=== PATIENT | male | born 1970 | race African-American/Black ===

== ENCOUNTER 2025-10-05 00:03 | Inpatient (IN) | payer OTHER ==
[~2025-10-05] VITALS: Ht 182.9 cm; Wt 64.9 kg
[~2025-10-05 00:03] MED LIST: LEVO-65 MT
[2025-10-05 00:13] VITALS: O2SAT 96
[2025-10-05] MEDS: SODIUM CHLORIDE 0.9% 1,000 ML IV ONE (01:45)
[2025-10-05] MEDS: LEVETIRACETAM 1000MG PREMIX 100 ML IV ONE (01:46)
[2025-10-05 01:53] LABS: BASOPHILS % 1.4 % (0.0-2.0); EOSINOPHILS % 0.5 % (0.0-5.0); HEMATOCRIT. 39.8 % (42.0-52.0); HEMOGLOBIN. 13.2 g/dL (14.0-18.0); LYMPHOCYTES % 13.2 % (20.0-50.0); MEAN PLATELET VOLUME 8.7 fl (7.4-10.4); MONOCYTES % 6.9 % (2.0-8.0); NEUTROPHILS % 78.0 % (40.0-76.0); PLATELET 255 x1000/uL (130-400); RED BLOOD CELL COUNT 3.90 mill/uL (4.7-6.1); RED CELL DISTRIBUTION WIDTH 13.7 % (11.6-14.6)
[2025-10-05 02:07] LABS: ETHANOL BLOOD 172 mg/dL (<10); UREA NITROGEN BLOOD 13 mg/dL (9-23)
[2025-10-05 02:08] LABS: ASPARTATE AMINOTRANSFERASE 31 IU/L (<34)
[2025-10-05 02:09] LABS: BILIRUBIN DIRECT 0.1 mg/dL (<=3.0); BILIRUBIN TOTAL 0.4 mg/dL (0.1-1.0); PROTEIN TOTAL 7.4 g/dL (6.0-8.3)
[2025-10-05 02:10] LABS: CREATININE 1.3 mg/dL (0.6-1.3)
[2025-10-05] MEDS: MIDODRINE HCL 5MG TABLET PO SCH (06:26)
[2025-10-05 06:54] VITALS: BP 90/66; PULSE 69; RESP 14; TEMP 36.696
[2025-10-05 08:00] VITALS: BP 88/51; PULSE 59; RESP 18; TEMP 35.9; O2SAT 100
[2025-10-05] MEDS: LEVETIRACETAM 500MG TABLET PO SCH (08:53)
[2025-10-05] MEDS ORDERED: LORAZEPAM 1MG TABLET PO PRN (09:45)
[2025-10-05] MEDS: ENOXAPARIN 40MG/0.4ML SYR SUBCUT SCH (11:46)
[2025-10-05 12:00] VITALS: BP 82/44; PULSE 60; RESP 18; TEMP 36.1; O2SAT 99
[2025-10-05] MEDS: CHLORDIAZEPOXIDE 25MG CAPSULE PO SCH (13:43)
[2025-10-05] MEDS: KETOROLAC 15MG/ML VIAL IV PRN (13:52)
[2025-10-05 16:00] VITALS: BP 83/44; PULSE 64; PULSE 94; RESP 18; TEMP 35.9; O2SAT 99
[2025-10-05 20:00] VITALS: BP 86/47; PULSE 52; RESP 19; TEMP 36.2; O2SAT 100
[2025-10-05] MEDS: SODIUM CHLORIDE 0.9% 1,000 ML IV SCH (21:08)
[2025-10-06] VITALS (7 sets, daily range): BP systolic 90–108; BP diastolic 50–64; PULSE 53–63; RESP 15–18; TEMP 36.2–36.7; O2SAT 98–100
[2025-10-07 04:20] VITALS: BP 103/55; PULSE 52; RESP 17; TEMP 36.2; O2SAT 99
[2025-10-07 08:00] VITALS: BP 101/47; PULSE 52; RESP 18; TEMP 36.7; O2SAT 100
[2025-10-07] MEDS ORDERED: LEVE1000 MT (09:34)
[2025-10-07] MEDS ORDERED: MIDO10TA3 MT (09:35)
[2025-10-07 12:00] VITALS: BP_SYST 101; BP_SYST 86; BP_DIAS 47; BP_DIAS 55; PULSE 52; RESP 15; TEMP 36.7; O2SAT 100
[2025-10-07 16:00] VITALS: BP 90/45; PULSE 66; RESP 16; TEMP 36.6; O2SAT 100
[2025-10-07 16:20] VITALS: BP 90/45; PULSE 66; RESP 16; TEMP 97.9
== END 2025-10-07 18:00 | disposition home or self-care (01) | DRG 53 ==
LOC: ER 00:03 → 6WST 03:00 → EDBEDREQTM 03:04 → EDBEDREQ 03:04 → ENRESERV 03:38
PROVIDERS: ADMIT Internal Medicine; ATTEND Internal Medicine
DX: G40.909 Epilepsy, unspecified, not intractable, without status epilepticus (principal); F10.929 Alcohol use, unspecified with intoxication, unspecified; Y90.6 Blood alcohol level of 120-199 mg/100 ml; T42.6X6A Underdosing of other antiepileptic and sedative-hypnotic drugs, initial encounter; Z91.148 Patient's other noncompliance with medication regimen for other reason; Z88.0 Allergy status to penicillin; Y92.89 Other specified places as the place of occurrence of the external cause
CPT/HCPCS: 36415; 71045; 80048; 80076; 80320; 82962; 83735; 85025; 93005; 96365; 99285; J1650; J1885; J1953; J7030; G0480